=== PATIENT | female | born 1955 | race Caucasian/White ===

== ENCOUNTER 2019-03-08 04:10 | Inpatient (IN) | payer OTHER ==
[~2019-03-08] VITALS: Ht 157.5 cm; Wt 91.8 kg
[~2019-03-08 04:10] MED LIST: ASPIRIN325 PO; AVELOX 400 MG400 M1 PO; CARVEDILOL3.125 MG PO; COMBIVENT INH; EFFIENT10 MG PO; GLIPIZIDE ER2.5 MG PO; K-DUR 20 MEQ T20 MEQ PO; LASIX 40 MG TAB40 M1 PO; LIPITOR40 MG PO; MULTI FOR HER1 EACH PO; OMEGA-3 + VITA1 EAC1 PO; SYNTHROID100 MC1 PO; ZESTRIL10 MG PO
[2019-03-08 04:17] VITALS: BP 213/127
[2019-03-08 04:34] LABS: HEMATOCRIT 44.4 % (37.0-47.0); HEMOGLOBIN 15.7 gm/dL (12.0-15.0); MCH 36.4 pg (26.0-34.0); MCHC 35.3 g/dL (28.0-37.0); MCV 103.1 fL (80.0-100.0); PLATELET COUNT 185 thou/uL (150-400); RBC 4.31 mil/uL (4.20-5.00); RDW 14.6 % (10.5-14.5); WBC 9.8 thou/uL (4.0-11.0)
[2019-03-08 04:47] LABS: ANION GAP 9 mmol/L (7-16); APTT 29.3 Seconds (24.5-32.8); BUN 19 mg/dL (7-18); CALCIUM 9.5 mg/dL (8.5-10.1); CHLORIDE 88 mmol/L (98-107); CO2 31 mmol/L (21-32); CREATININE 1.1 mg/dL (0.6-1.0); GLUCOSE 133 mg/dL (74-106); POTASSIUM 3.3 mmol/L (3.5-5.1); PROTIME 9.5 Seconds (9.3-11.4); SODIUM 128 mmol/L (136-145)
[2019-03-08] MEDS ORDERED: NORVASC5 MG PO (04:50)
[2019-03-08] MEDS ORDERED: CHLORTHALIDONE25 MG PO (04:52)
[2019-03-08 04:57] LABS: ALBUMIN 3.1 g/dL (3.4-5.0); MAGNESIUM 1.8 mg/dL (1.8-2.4); SGOT 34 U/L (15-37); SGPT 29 U/L (30-65); TOTAL BILIRUBIN 0.7 mg/dL (<0.1-1.0); TOTAL PROTEIN 8.5 g/dL (6.4-8.2); TROPONIN-I <0.06 ng/mL (<0.06)
[2019-03-08 05:42] VITALS: BP 177/104
[2019-03-08 05:47] LABS: ABSOLUTE NEUTROPHILS 9.3 thou/uL (1.4-8.2)
[2019-03-08 05:48] LABS: ANISOCYTOSIS 1+; MACROCYTES 1+; PLATELET ESTIMATE NORMAL; POLYCHROMASIA 1+
[2019-03-08 05:53] VITALS: BP 153/93
[2019-03-08 06:45] VITALS: BP 97/55
--- NOTE | 2019-03-08 06:45 | NUR ---
TRANSFERED PT TO 464, BP ON ARRIVAL TO 4WEST 88/55, NITROPASTE REMOVED AND UPDATE GIVEN TO YAJAIRA RODRIGUEZ.
--- NOTE | 2019-03-08 08:08 | EKG ---
[place] [address] [facility] [place] [address] ELECTROCARDIOGRAM REPORT Name: AUDIE MENJIVAR Room #: 464-P ADM IN M.R.#: [id number] ������������������ Admission: 03/08/19 ������������������ Attend Phys: Quentin Lopez MD Discharge: ������������������ Date of : 51 Report #: [id number] ����������������������������������������������������������������� [id number] THIS REPORT FOR: //name// [facility] ED Test Date: 2019-03-08 Test Time: 04:24:48 Pat Name: AUDIE MENJIVAR Department: Room: 464 Gender: F Postie: MAC : 1955 Requested By: James Nguyen Order Number: [id number] MD: Jovan Grace Measurements Intervals [place] Rate: 105 P: 95 WY: 182 QRS: -60 QRSD: 110 T: 98 QT: 360 QTc: 476 Interpretive Statements Sinus tachycardia Left anterior fascicular block Poor R wave progression Compared to ECG 06/14/2012 07:32:24 no significant change was found Electronically Signed On 03-08-2019 8:08:13 CDT by Jovan Grace [email or web address] ��������������������������������������������� <ELECTRONICALLY SIGNED> ���������������������������������������� By: Jovan Grace MD, [facility] ��������������������������������������������� 03/08/19 0808 0424 0424 Jovan Grace MD, [facility] /EPI
--- NOTE | 2019-03-08 10:28 | NUR ---
ADM PT CAME IN FROM ER AT SHIFT CHANGE. PT ORIENTED TO ROOM. ADM ORDERS DONE. WILL CONTINUE TO MONITOR.
[2019-03-08 13:55] VITALS: BP 107/70
--- NOTE | 2019-03-08 14:44 | NUR ---
PT ADMITTED RELATED TO COPD, CHF. CM REVIEWED CHART AND SPOKE WITH CARE TEAM. CM MET WITH PT AT BEDSIDE THIS DAY. PT IS A&O X4. CM ROLE INTRODUCED. PT INDICATED SHE LIVES IN A HOUSE WITH HER SPOUSE WITH 3 STEPS TO ENTER AND 0 STEPS INSIDE. 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 PT INDICATED SHE PLANS TO RETURN HOME ONCE MEDICALLY STABLE. CM TO FOLLOW INDICATED WITH DC PLANNING.
[2019-03-08 19:47] VITALS: BP 126/78
[2019-03-09 04:50] VITALS: BP 103/52
[2019-03-09 05:09] LABS: ABSOLUTE NEUTROPHILS 10.7 thou/uL (1.4-8.2); BASOPHILS 0.1 % (0.0-2.0); HEMOGLOBIN 13.8 gm/dL (12.0-15.0); LYMPHOCYTES 1.9 % (24.0-44.0); MCH 35.7 pg (26.0-34.0); MCHC 34.4 g/dL (28.0-37.0); MCV 103.7 fL (80.0-100.0); MONOCYTES 1.7 % (1.0-8.0); PLATELET COUNT 178 thou/uL (150-400); POLYS 96.3 % (36.0-66.0); RBC 3.85 mil/uL (4.20-5.00); RDW 14.5 % (10.5-14.5); WBC 11.1 thou/uL (4.0-11.0)
[2019-03-09 05:30] LABS: ANION GAP 8 mmol/L (7-16); BUN 29 mg/dL (7-18); CALCIUM 8.7 mg/dL (8.5-10.1); CHLORIDE 92 mmol/L (98-107); CO2 30 mmol/L (21-32); CREATININE 1.3 mg/dL (0.6-1.0); GLUCOSE 129 mg/dL (74-106); MAGNESIUM 1.9 mg/dL (1.8-2.4); POTASSIUM 4.4 mmol/L (3.5-5.1); SODIUM 130 mmol/L (136-145); TROPONIN-I <0.06 ng/mL (<0.06)
[2019-03-09 05:54] LABS: CHOLESTEROL 261 mg/dL (<200); HDL CHOLESTEROL 54 mg/dL (>40); LDL CHOLESTEROL 187 mg/dL (<100); TC:HDL 4.8 Ratio (Not establshd); TRIGLYCERIDE 103 mg/dL (<150); VLDL 21 mg/dL (<40)
[2019-03-09 05:56] LABS: SERUM ASSESSMENT Clear
--- NOTE | 2019-03-09 10:49 | 2DMMODE ---
[facility] [address] [place] [address] 2 D/M-MODE ECHOCARDIOGRAM Name: AUDIE MENJIVAR Room #: 464-P ADM IN M.R.#: [id number] ������������� Admission: 03/08/19 ������������� Attend Phys: Quentin Lopez MD Discharge: ��� ������������� ��� Date of : 51 Date of Service: 03/09/19 1048 �� Report #: [id number] �������� ��������������������������������������������[id number] THIS REPORT FOR: //name// APPROVED REPORT Study performed: 03/09/2019 09:35:44 EXAM: Comprehensive 2D, Doppler, and color-flow Echocardiogram Patient Location: Bedside, PRE-OP Room #: 464 Status: routine BSA: 1.93 HR: 70 bpm BP: 103/63 mmHg Rhythm: NSR Other Information Study Quality: Technically Difficult Technically limited study due to body habitus, inability to position patient. Indications Congestive Heart Failure COPD CAD Hypertension/HDD elevated BNP 2D Dimensions RVDd: 23.04 mm IVSd: 16.88 (7-11mm) LVOT Diam: 22.69 (18-24mm) LVDd: 35.99 mm PWd: 17.03 (7-11mm) Ascending Ao: 24.88 (22-36mm) LVDs: 31.27 (25-40mm) Aortic Root: 28.65 mm IVC: 20.00 mm Volumes Left Atrial Volume (Systole) Single Plane 4CH: 44.24 mL Single Plane 2CH: 53.57 mL LA ESV Index: 27.00 mL/m2 Aortic Valve AoV Peak Thad.: 1.46 m/s AO Peak Gr.: 8.53 mmHg LVOT Max P.31 mmHg LVOT Max V: 1.04 m/s [facility] [address] [place] [address] 2 D/M-MODE ECHOCARDIOGRAM Name: AUDIE MENJIVAR Room #: 464-[facility].#: [id number] ������������� Admission: 03/08/19 ������������� Attend Phys: Quentin Lopez MD Discharge: ��� ������������� ��� Date of : 51 Date of Service: 03/09/19 1048 �� Report #: [id number] �������� ��������������������������������������������[id number] CHRISTOPHER Vmax: 2.87 cm2 Mitral Valve E/A Ratio: 1.1 MV Decel. Time: 171.74 ms MV E Max Thad.: 1.00 m/s MV A Thad.: 0.91 m/s MV PHT: 49.81 ms IVRT: 152.25 ms Pulmonary Valve PV Peak Thad.: 0.70 m/s PV Peak Gr.: 1.96 mmHg Tricuspid Valve RAP Estimate: 5.00 mmHg Left Ventricle The left ventricle is normal size. There is normal LV segmental wall motion. Mild concentric left ventricular hypertrophy. The left ventricular systolic function is normal. The left ventricular ejection fraction is within the normal range. LVEF is 50-55%. Moderate diastolic dysfunction is present (pseudonormal filling). Right Ventricle The right ventricle is normal size. The right ventricular systolic function is normal. Atria The left atrium size is normal. The right atrium size is normal. Aortic Valve Aortic valve is mildly calcified. No aortic regurgitation is present. There is no aortic valvular stenosis. Mitral Valve Mild mitral annular calcification. There is no mitral valve regurgitation noted. No evidence of mitral valve stenosis. Tricuspid Valve The tricuspid valve is normal in structure. Trace tricuspid regurgitation. Unable to assess PA pressure. Pulmonic Valve The pulmonary valve is normal in structure. Trace pulmonic [facility] [address] [place] [address] 2 D/M-MODE ECHOCARDIOGRAM Name: AUDIE MENJIVAR Room #: 464-P ADM IN M.R.#: [id number] ������������� Admission: 03/08/19 ������������� Attend Phys: Quentin Lopez MD Discharge: ��� ������������� ��� Date of : 51 Date of Service: 03/09/19 1048 �� Report #: [id number] �������� ��������������������������������������������[id number] regurgitation. Great Vessels The aortic root is normal in size. IVC is upper limits of normal in size and collapses >50% with inspiration. Pericardium Moderate to large pericardial effusion. No echo indexes of tamponade physiology. Large left pleural effusion. <Conclusion> The left ventricular systolic function is normal. Mild concentric left ventricular hypertrophy. There is normal LV segmental wall motion. LVEF is 50-55%. Moderate diastolic dysfunction Aortic valve is mildly calcified. No aortic regurgitation or stenosis. Mild mitral annular calcification. No mitral valve regurgitation. Moderate to large pericardial effusion. No echo indexes of tamponade physiology. Pericardial appears smaller than what was seen in 2011 ��������������������������������������������� <ELECTRONICALLY SIGNED> ���������������������������������������� By: Jovan Grace MD, [facility] ��������������������������������������������� 03/09/19 1048 1048 1048 Jovan Grace MD, [facility] /INF
[2019-03-09 11:06] LABS: BE(vivo) 1.5 mmol/L (-2 to +3); sO2 90.7 % (92.0-98.0)
[2019-03-09 11:07] LABS: PCO2 65.5 mmHg (35.0-45.0); pH 7.279 (7.360-7.450)
--- NOTE | 2019-03-09 14:49 | NUR ---
TOWARDS POC PT A/O X4, VSS, AFEBRILE, DENIES PAIN. PT WENT DOWN FOR BRONCH, BUT NO PROCEDURES HAS BEEN DONE. PLANNING TO DO CARDIAC WORK UP PRIOR BRONCH. FAMILY AWARE ABOUT THE SITUATION. CRITICAL RESULTS RELAY TO CYBER OPS PLANNER. WILL CONTINUE TO MONITOR.
[2019-03-09 16:27] VITALS: BP 114/78
[2019-03-09 20:41] VITALS: BP 103/56
[2019-03-09 23:05] LABS: GLYCOHEMOGLOBIN (HGB A1C) 5.9 % (4.8-5.6)
[2019-03-10] VITALS (33 sets, daily range): BP systolic 64–130; BP diastolic 41–79
[2019-03-10 00:07] LABS: HIV ANTIBODY Non Reactive (Non Reactive)
--- NOTE | 2019-03-10 06:23 | NUR ---
PROGRESS PT ADMITTED WITH COPD.CHF. LEFT PLEURAL EFFUSIONS. TO HAVE BRONCHOSCOPY THESE AM ORDERS JUST OBTAINED. PT A/O X4 DENIES PAIN. RE ADJUSTING SLEF IN BED, UP WITH SBA WITH SLIGHTCONTACT GUARD DO ASSIST. CONTINUE TO MONITOR.
[2019-03-10 08:44] LABS: CALCIUM 8.9 mg/dL (8.5-10.1); CREATININE 1.2 mg/dL (0.6-1.0); POTASSIUM 4.9 mmol/L (3.5-5.1)
--- NOTE | 2019-03-10 11:05 | HC ---
[facility] [place] [address] [place] [address] CONSULTATION Name: AUDIE MENJIVAR Room #: 464-P ADM IN M.R.#: [id number] Admission: 03/08/19 ������������������ Attend Phys: Quentin Lopez MD Discharge: ������������������ Date of : 51 Report #: [id number] THIS REPORT FOR: //name// CC: Reji Lopez DATE OF SERVICE: 03/09/2019 REASON FOR CONSULTATION: I was asked to evaluate concerning pneumonia. HISTORY OF PRESENT ILLNESS: The patient is a 63-year-old underlying history of diabetes, coronary artery disease, COPD with cardiomyopathy and history of previous congestive heart failure. She has been off her medications for several months. She does smoke cigarettes up to 2 packs per day. She does drink a moderate amount of alcohol. She presents with a several-month history of progressive shortness of breath. Over the last week, she has noticed increased cough with green sputum production, intermittent sweats and chills, but no documented fever. She has had intermittent chest pain to the left side. No hemoptysis. Has moderate PND and orthopnea. Has had some peripheral edema as well. No travel outside the [place]. No other known exposures. No tuberculosis history. No HIV risk factors. ALLERGIES: None known. MEDICATIONS: As noted on JAN, currently on Levaquin. PAST MEDICAL HISTORY: Diabetes, coronary artery disease, cardiomyopathy, hypertension, COPD, chronic kidney disease, vascular disease, hypothyroidism. FAMILY HISTORY: Noncontributory. SOCIAL HISTORY: Smoker of cigarettes, moderate alcohol use, lives with her spouse. REVIEW OF SYSTEMS: Denies any nausea, vomiting, diarrhea, dysuria or frequency. No skin rashes or decubiti. Denies any headache or neurologic issues. No lymphadenopathy, anxiety or depression. A 10-point review was negative other than what is described above. PHYSICAL EXAMINATION: VITAL SIGNS: She is afebrile and hemodynamically stable. GENERAL: She was alert and cooperative. She is lying in bed, awaiting her bronchoscopy. SKIN: Mild venous stasis changes to the right pretibial skin with no other rashes or decubiti noted. No palpable adenopathy. HEENT: Eyes without scleral icterus. Mouth without mucositis. Dentition in [facility] [address] [place] [address] CONSULTATION Name: AUDIE MENJIVAR Room #: 464- ADM IN M.R.#: [id number] Admission: 03/08/19 ������������������ Attend Phys: Quentin Lopez MD Discharge: ������������������ Date of : 51 Report #: [id number] reasonable repair. NECK: Supple. No thyromegaly or mass. LUNGS: Decreased breath sounds, left base posteriorly. There was consolidation in the left mid posterior chest. She had scattered wheezes throughout. HEART: Distant sounds, with no rub, gallop or murmur. ABDOMEN: Obese, soft, nontender with no hepatosplenomegaly or mass. EXTREMITIES: With no clubbing or cyanosis. She had mild edema, right lower leg. NEUROLOGIC: Cranial nerves intact. Strength in upper and lower extremities was normal. PSYCHIATRIC: Mood normal. LABORATORY STUDIES: Reviewed. X-ray and CT scans were reviewed. Microbiology reports reviewed. IMPRESSION: 1. A 63-year-old with cardiomyopathy and chronic obstructive pulmonary disease, presents with bilateral consolidative infiltrates, most predominant in the left lung, associated with a large left pleural effusion and large pericardial effusion. She does have some mediastinal adenopathy. Cause is yet indeterminate whether we are dealing with bronchial obstructive disease, malignancy, aspiration, autoimmune disorder. 2. Diabetes. 3. Chronic obstructive pulmonary disease. 4. Hypothyroidism. 5. Obesity. 6. Tobacco use. RECOMMENDATION: Agree with cardiac evaluation. Will likely need drainage procedure, I believe, of the pericardium or pleural space on the left. Await bronchoscopy for further information regarding endobronchial lesions or evidence of mucus plugging. Also, evaluate for possible aspiration. We will check cultures from bronchoscopy as well as antigens, serologies. Screen for malignancy. Await further Cardiology evaluation. ��������������������������������������������� <ELECTRONICALLY SIGNED> ���������������������������������������� By: James Martínez MD ��������������������������������������������� 03/10/19 1105 0940 0112 James Martínez MD /nt
--- NOTE | 2019-03-10 11:19 | NUR ---
ALERTED EARLIER THAT PT IS BEING TRANSFERRED TO ICU, CALLED AND SPOKE W/CHARGE TO GIVE REPORT TO NURSE ASSIGNED, SHE STATES NURSE WILL RETURN CALL WHEN SHE'S READY
[2019-03-10 17:58] LABS: BE(vivo) 2.9 mmol/L (-2 to +3); HCO3 29.2 mmol/L (22.0-26.0); PCO2 52.1 mmHg (35.0-45.0); PO2 71.7 mmHg (80.0-100.0); pH 7.366 (7.360-7.450); sO2 93.7 % (92.0-98.0)
--- NOTE | 2019-03-10 20:37 | NUR ---
VASCULAR ACCESS CONSULTED FOR PICC PLACEMENT. PT'S LABS,MEDS,HISTORY,ORDER AND CONSENT VERIFIED. PT WAS PREPPED AND DRAPED FOR MAX BARRIER PRECAUTIONS. ATTEMPTED AMANDA BASILIC UNSUCCESSFUL THEN AMANDA CEPHALIC WIDELY PATENT WITH USG, 1% LIDOCAINE GIVEN SQ. 5FR POWER TL PICC TRIMMED TO 40CM ,HAD DIFFICULT TIME DROPPING AFTER NUMEROUS ATTEMPTS,THEN DROPPED AFTER PT COUGHED.INSERTED TO 2CM EXTERNAL.PICC SECURED AND STAT CXR OBTAINED.
--- NOTE | 2019-03-10 20:44 | NUR ---
CXR CONFIRMED PLACEMENT IN SVC, PICC RELEASED FOR IMMEDIATE USE PER PROTOCOL TO JAMAR RODRIGUEZ.
[2019-03-11] VITALS (93 sets, daily range): BP systolic 84–156; BP diastolic 47–89
[2019-03-11 04:50] LABS: MCH 36.7 pg (26.0-34.0); MCHC 35.2 g/dL (28.0-37.0); MCV 104.4 fL (80.0-100.0); RBC 3.16 mil/uL (4.20-5.00); WBC 6.3 thou/uL (4.0-11.0)
[2019-03-11 05:01] LABS: CREATININE 0.8 mg/dL (0.6-1.0); POTASSIUM 4.7 mmol/L (3.5-5.1)
[2019-03-11 05:02] LABS: HEMOGLOBIN 11.6 gm/dL (12.0-15.0)
[2019-03-11 05:11] LABS: BE(vivo) 1.3 mmol/L (-2 to +3); HCO3 27.5 mmol/L (22.0-26.0); PCO2 50.2 mmHg (35.0-45.0); PO2 77.8 mmHg (80.0-100.0); pH 7.357 (7.360-7.450); sO2 94.9 % (92.0-98.0)
--- NOTE | 2019-03-11 06:00 | NUR ---
REMAINS INTUBATED AND SEDATED WITH PROPOFOL GTT. AROUSES EASILY AND FOLLOWS COMMANDS. SINUS HEATHER TO SR. BATHED REPOSITIONED Q 2 HRS. WILL CONT TO MONITOR. WILL ATTEMPT TO WEAN TODAT.
--- NOTE | 2019-03-11 06:00 | NUR ---
PT REMAINS INTUBATED..OPENS EYES TO NAME AND FOLLOW SIMPLE COMMANDS. 650 CC UO THIS SHIFT. DENIES PAIN. REPOSITIONED A 2KRD. WILL CONT TO MONILK.
[2019-03-11 18:05] LABS: HISTOPLASMA MYCELIAL-ID Negative (Negative)
[2019-03-12] VITALS (42 sets, daily range): BP systolic 90–159; BP diastolic 53–93
[2019-03-12 05:32] LABS: BE(vivo) 3.2 mmol/L (-2 to +3); HCO3 28.7 mmol/L (22.0-26.0); PCO2 47.8 mmHg (35.0-45.0); pH 7.397 (7.360-7.450); sO2 97.5 % (92.0-98.0)
--- NOTE | 2019-03-12 06:00 | NUR ---
REMAINS INTUBATED AND LIGHTLY SEDATED WITH PROPOFOL GTT AT 20 MCG 550 CFC UO THIS SHIFT. AROUSES EASILY. FOLLOWS COMMANDS. REMAINS IN SINUS HEATHER TO SINUS RHYTHM. WILL CONT TO MONITOR CLOSELY.
[2019-03-12 06:02] LABS: HEMATOCRIT 34.1 % (37.0-47.0); HEMOGLOBIN 11.7 gm/dL (12.0-15.0); MCHC 34.4 g/dL (28.0-37.0); MCV 104.4 fL (80.0-100.0); RBC 3.26 mil/uL (4.20-5.00); RDW 14.6 % (10.5-14.5); WBC 4.4 thou/uL (4.0-11.0)
[2019-03-12 06:07] LABS: CALCIUM 7.3 mg/dL (8.5-10.1); CREATININE 0.7 mg/dL (0.6-1.0); MAGNESIUM 1.9 mg/dL (1.8-2.4); POTASSIUM 4.8 mmol/L (3.5-5.1)
--- NOTE | 2019-03-12 19:22 | NUR ---
PATIENT ASSESSMENTS AND VITAL SIGNS DOCUMENTED. PLAN OF CARE IS FOR A CAT SCAN TOMORROW, THEN EVALUATION OF NEED FOR VENTILATOR. FAMILY UPDATED THROUGHOUT THE DAY. SPOUSE WAS AT BEDSIDE MOST OF THE DAY. SHE IS ABLE TO COMMUNICATE NEEDS AND WANTS. SHE WAS TURNED DOCUMENTED. SHE REQUESTED THIS EVENING TO HAVE SCDS OFF. THIS WAS DONE, EDUCATION PROVIDED. ORAL CARE PROVIDED. REPORT GIVEN TO THE SPRING CRATER RN FOR CONTINUATION OF CARE.
--- NOTE | 2019-03-12 19:23 | NUR ---
I have reviewed the documentation by VALENTIN WALDROP from 03/12/2019 0700 to 03/12/2019 192 and I concur with it.
[2019-03-13] VITALS (24 sets, daily range): BP systolic 106–164; BP diastolic 63–91
[2019-03-13 05:18] LABS: HEMATOCRIT 35.8 % (37.0-47.0); HEMOGLOBIN 12.3 gm/dL (12.0-15.0); MCH 35.7 pg (26.0-34.0); MCHC 34.4 g/dL (28.0-37.0); RBC 3.44 mil/uL (4.20-5.00); RDW 14.5 % (10.5-14.5); WBC 4.6 thou/uL (4.0-11.0)
[2019-03-13 05:30] LABS: CALCIUM 7.3 mg/dL (8.5-10.1); CREATININE 0.8 mg/dL (0.6-1.0); POTASSIUM 4.2 mmol/L (3.5-5.1)
--- NOTE | 2019-03-13 06:00 | NUR ---
PT HAS RESTED QUIETLY TONIGHT. INTUBATED AND SEDATED LIGHTLY WITH PROPOFOL GTT AT 20 MCG. AROUSES EASILY AND FOLLOWS COMMANDS. LUNGS COARSE IN UPPER LOBES SUCTIONED FOR A MOD AMT WHITISWH SPUTUM. DIURECED WELL FROM LASIX 1700 CC UO THIS SHIFT. BATHED. S/C FOR CT OF CHEST THIS AM. BATHED WILL CONT TO MONITOR CLOSELY.
[2019-03-13 12:05] LABS: ANA INTERPRETATION Negative (Negative)
--- NOTE | 2019-03-13 18:05 | PATH ---
[facility] [place] [address] PATHOLOGY RPT PROCEDURE Name: ARELIS FERNANDEZ Room #: 241-P ADM IN M.R.#: [id number] ������������������ Admission: 03/08/19 ������������������ Date of : 51 Discharge: Report #: [id number] Path Case #: [id number] L[facility] Accession Number: [id number] . 01 Material submitted: . lung - LEFT LOWER LOBE LUNG BIOPSY. Modifiers: left, lower lobe . 01 Clinical history: . Please refer to requisition for information . 02 Diagnosis: Lung, left lower lobe, bronchial biopsy: - Negative for malignancy. - Mild chronic inflammation. (IUV:pit 03/13/2019) . Dr. Reyna Rincon has co-reviewed this case and concurs with my diagnosis. (IUV:pit 03/13/2019) QTP/03/13/2019 . 02 Electronically signed: . Abril U Vadlamani, MD, Pathologist NPI- [id number] . 01 Gross description: . Received in formalin labeled "Arelis Fernandez LLL biopsy," are multiple segments of puente soft tissue measuring 0.4 x 0.2 x 0.1 cm in aggregate dimensions. The specimen is filtered and entirely submitted in cassette A1. (TSD; 03/10/2019) TOB/TOB . 02 Pathologist provided ICD-10: J98.4 . 02 CPT . [id number] Specimen Comment: A courtesy copy of this report has been sent to Specimen Comment: [phone], , . Specimen Comment: Report sent to ,DR RIVAS / DR BLISS Performed at: [address] [id number] MD Porfirio Metzger MD Phone: [phone] Performed at: 02 [facility] [address] [place] [address] PATHOLOGY RPT PROCEDURE Name: ARELIS FERNANDEZ Room #: 241-P ADM IN M.R.#: [id number] ������������������ Admission: 03/08/19 ������������������ Date of : 51 Discharge: Report #: [id number] Path Case #: [id number] [address] [place], [place] [id number] MD Abril Andre MD Phone: [phone]
[2019-03-13 18:08] LABS: GLOBULIN TOTAL 3.9 g/dL (2.2-3.9); M-SPIKE Not Observed g/dL (Not Observed)
[2019-03-13 21:05] LABS: ADENOVIRUS Negative (Negative); INFLUENZA A Negative (Negative); INFLUENZA B Negative (Negative); METAPNEUMOVIRUS Negative (Negative); PARAINFLUENZA 1 Negative (Negative); PARAINFLUENZA 2 Negative (Negative); PARAINFLUENZA 3 Negative (Negative); RHINOVIRUS Negative (Negative); RSV A Negative (Negative); RSV B Negative (Negative)
[2019-03-14] VITALS (21 sets, daily range): BP systolic 104–177; BP diastolic 61–99
[2019-03-14 04:06] LABS: CALCIUM 7.7 mg/dL (8.5-10.1); CREATININE 0.8 mg/dL (0.6-1.0); POTASSIUM 3.7 mmol/L (3.5-5.1)
[2019-03-14 04:24] LABS: HEMATOCRIT 39.3 % (37.0-47.0); HEMOGLOBIN 13.4 gm/dL (12.0-15.0); MCH 35.6 pg (26.0-34.0); MCHC 34.2 g/dL (28.0-37.0); RBC 3.77 mil/uL (4.20-5.00); RDW 14.2 % (10.5-14.5); WBC 5.4 thou/uL (4.0-11.0)
--- NOTE | 2019-03-14 06:11 | NUR ---
SLEPT MOST OF SHIFT. AROUSES EASILY AND ANSWERS YES NO QUESTIONS WITH NODDING HEAD. POINTS AT THINGS AND WRITES NOTES WHEN NEEDED FOR COMUNICAITON. REPOSITIONED EVERY TWO HOURS FOR COMFORT AND SKIN CARE. MAINTAIN PROPOPHOL FOR MILD SEDATION. BATH GIVEN FOR COMFORT. COMPLAINTS OF THROAT PAIN WITH MOROPHINE GIVEN WITH RELIEF. SUCTIONED ORALLY AND PER TUBE FOR COMFORT. WORKING ON GOALS AND PLAN OF CARE FOR NOC. PROGRESSING SLWOLY TOWARDS GOALS. CONTINUE TO ASSES AND MONITOR CLOSLY.
[2019-03-14 14:32] LABS: CLARITY CLOUDY; COLOR YELLOW; SOURCE LFT THORA; TOTAL VOLUME 57 mL
[2019-03-14 14:40] LABS: BF NUCLEATED CELLS 285; BF RBC 1486
--- NOTE | 2019-03-14 15:05 | PATH ---
[facility] [address] [place] [address] PATHOLOGY RPT PROCEDURE Name: AUDIE MENJIVAR Room #: 241-P ADM IN M.R.#: [id number] ������������������ Admission: 03/08/19 ������������������ Date of : 51 Discharge: Report #: [id number] Path Case #: [id number] Note LCA Accession Number: [id number] TESTS RESULT FLAG UNITS REF RANGE LAB Clinician Provided Cytology Information No. of containers..01 Other (Miscellaneous) Source: BRONCH BRUSH TIP DIAGNOSIS: 02 LEFT LOWER LOBE, BRONCH BRUSH TIP NEGATIVE FOR MALIGNANT CELLS. REACTIVE BRONCHIAL CELLS ARE PRESENT. PULMONARY MACROPHAGES (DUST CELLS) ARE PRESENT. CHRONIC INFLAMMATION. Pathologist ICD10: 02 J44.9 Signed out by: Abril Andre MD, Pathologist NPI- [id number] Performed by: Farhana Denton, Production Reproduction Manager ([facility]) Gross description: 01 20ML, COLORLESS, CLEAR /LCS FLAG LEGEND: L-Low Normal,H-High Normal,LL-Alert Low,HH-Alert High <-Panic Low,>-Panic High,A-Abnormal,AA-Critical Abnormal Performed at: [address] [place] [address] Porfirio Metzger MD, [address] [address] Abril Andre MD, Specimen Comment: A courtesy copy of this report has been sent to Specimen Comment: [phone], , . Specimen Comment: A duplicate report has been generated due to demographic updates. Performed at: [address], [place], [place] [id number] MD Porfirio Metzger MD Phone: [phone]
--- NOTE | 2019-03-14 15:05 | PATH ---
[facility] [address] [place] [address] PATHOLOGY RPT PROCEDURE Name: AUDIE MENJIVAR Room #: 241-P ADM IN M.R.#: [id number] ������������������ Admission: 03/08/19 ������������������ Date of : 51 Discharge: Report #: [id number] Path Case #: [id number] Note LCA Accession Number: [id number] TESTS RESULT FLAG UNITS REF RANGE LAB Clinician Provided Cytology Information No. of containers..01 Other (Miscellaneous) Source: LLL ASPIRATE DIAGNOSIS: LLL ASPIRATE NEGATIVE FOR MALIGNANT CELLS. REACTIVE BRONCHIAL CELLS ARE PRESENT. PULMONARY MACROPHAGES (DUST CELLS) ARE PRESENT. THIS INTERPRETATION INCLUDES EVALUATION OF A CELL BLOCK. CHRONIC INFLAMMATION PRESENT IN THE BACKGROUND. Pathologist ICD10: 02 J44.9 Signed out by: 02 Abril Andre MD, Pathologist NPI- [id number] Performed by: Farhana Denton, Continuous Dryout Operator ([facility]) Gross description: 01 10ML, VANDANA WEST /LCS FLAG LEGEND: L-Low Normal,H-High Normal,LL-Alert Low,HH-Alert High <-Panic Low,>-Panic High,A-Abnormal,AA-Critical Abnormal Performed at: [address] [place] [address] Porfirio Metzger MD, [address] [address] Abril Andre MD, Specimen Comment: A courtesy copy of this report has been sent to Specimen Comment: [phone], , . Specimen Comment: Report sent to DR BOYLE,DR RIVAS / DR BLISS Specimen Comment: A duplicate report has been generated due to demographic updates. Performed at: [address], [place], [place] [id number] [address] [address] PATHOLOGY RPT PROCEDURE Name: AUDIE MENJIVAR Room #: 241-P [facility] IN M.R.#: [id number] ������������������ Admission: 03/08/19 ������������������ Date of : 51 Discharge: Report #: [id number] Path Case #: [id number] MD Porfirio Metzger ND Phone: [phone]
--- NOTE | 2019-03-14 15:05 | PATH ---
[facility] [address] [place] [address] PATHOLOGY RPT PROCEDURE Name: AUDIE MENJIVAR Room #: 241-P ADM IN M.R.#: [id number] ������������������ Admission: 03/08/19 ������������������ Date of : 51 Discharge: Report #: [id number] Path Case #: [id number] Note LCA Accession Number: [id number] TESTS RESULT FLAG UNITS REF RANGE LAB Clinician Provided Cytology Information No. of containers..01 Other (Miscellaneous) Source: BRONCHIAL WASHING DIAGNOSIS: 02 BRONCHIAL WASHING NEGATIVE FOR MALIGNANT CELLS. NORMAL BRONCHIAL CELLS AND MACROPHAGES ARE PRESENT. PULMONARY MACROPHAGES (DUST CELLS) ARE PRESENT. Pathologist ICD10: 02 J44.9 Signed out by: Abril Andre MD, Pathologist NPI- [id number] Performed by: Farhana Denton, Route Delivery Driver ([facility]) Gross description: 01 30ML, RED, CLOUDY /LCS FLAG LEGEND: L-Low Normal,H-High Normal,LL-Alert Low,HH-Alert High <-Panic Low,>-Panic High,A-Abnormal,AA-Critical Abnormal Performed at: [address] [place] [address] Porfirio Metzger MD, [address] [address] Abril Andre MD, Specimen Comment: A courtesy copy of this report has been sent to Specimen Comment: [phone], . Specimen Comment: Report sent to DR BLISS / DR RIVAS Specimen Comment: A duplicate report has been generated due to demographic updates. Performed at: [address], [place], [place] [id number] MD Porfirio Metzger MD Phone: [phone]
--- NOTE | 2019-03-14 15:05 | PATH ---
[facility] [address] [place] [address] PATHOLOGY RPT PROCEDURE Name: AUDIE MENJIVAR Room #: 241-P ADM IN M.R.#: [id number] ������������������ Admission: 03/08/19 ������������������ Date of : 51 Discharge: Report #: [id number] Path Case #: [id number] Note LCA Accession Number: [id number] TESTS RESULT FLAG UNITS REF RANGE LAB Clinician Provided Cytology Information No. of containers..01 Slide Source: LLL BRUSHING DIAGNOSIS: 02 LLL BRUSHING NEGATIVE FOR MALIGNANT CELLS. REACTIVE BRONCHIAL CELLS ARE PRESENT. PULMONARY MACROPHAGES (DUST CELLS) ARE PRESENT. RARE MARKEDLY ENLARGED ATYPICAL NAKED NUCLEI, SEE COMMENT. Comment: Scant to rare markedly enlarged atypical naked nulei with no associated cytoplasm are identified. Abundant reactive bronchial epithelial cells are present in the background with no evident atypical features. The scant nature and lack of associated cytologic details precludes an interpretation for these cells. Clinical correlation is suggested. Pathologist ICD10: 02 J44.9 Signed out by: 02 Abril Andre MD, Pathologist NPI- [id number] Performed by: 01 Farhana Denton, Food Services Coordinator ([facility]) FLAG LEGEND: L-Low Normal,H-High Normal,LL-Alert Low,HH-Alert High <-Panic Low,>-Panic High,A-Abnormal,AA-Critical Abnormal Performed at: 01 [facility] [address] [place] [address] [address] [place] [address] Porfirio Metzger MD, [address] [address] Abril Andre MD, Specimen Comment: A courtesy copy of this report has been sent to Specimen Comment: [phone], , . Specimen Comment: Report sent to DR BOYLE,DR BLISS / DR RIVAS Specimen Comment: A duplicate report has been generated due to demographic updates. Performed at: [address] [address] PATHOLOGY RPT PROCEDURE Name: AUDIE MENJIVAR Room #: 241-P [facility] IN M.R.#: [id number] ������������������ Admission: 03/08/19 ������������������ Date of : 51 Discharge: Report #: [id number] Path Case #: [id number] [facility] [address] [place] [address] [address], [place], [place] [id number] MD Porfirio Metzger MD Phone: [phone]
[2019-03-14 15:45] LABS: BF NEUTROPHILS 55
[2019-03-14 15:46] LABS: BF MACROPHAGE 11
[2019-03-14 16:31] LABS: BE(vivo) 8.4 mmol/L (-2 to +3); PCO2 50.1 mmHg (35.0-45.0); PO2 87.5 mmHg (80.0-100.0); sO2 96.9 % (92.0-98.0)
[2019-03-14 22:10] LABS: HISTOPLASMA MYCELIAL-CF Negative (Neg:<1:2)
--- NOTE | 2019-03-14 22:21 | NUR ---
GCS 15. A&O X4. FC, [place]. C/O NECK PAIN. TORADOL ADMINISTERED. SINUS BRADYCARDIA TO SINUS RHYTHM ON MONITOR. HYDRALAZINE ADMINISTERED FOR HYPERTENSION. O2 SAT > 92% ON 6L PER HIGH FLOW NASAL CANNULA. PT DENIES SOA. VITAL SIGNS AND ASSESSMENTS DOCUMENTED. WILL CONTINUE TO MONITOR.
[2019-03-15] VITALS (16 sets, daily range): BP systolic 101–176; BP diastolic 51–99
[2019-03-15 04:06] LABS: CALCIUM 8.3 mg/dL (8.5-10.1); CREATININE 0.7 mg/dL (0.6-1.0); POTASSIUM 3.4 mmol/L (3.5-5.1)
[2019-03-15 04:14] LABS: HEMATOCRIT 42.6 % (37.0-47.0); HEMOGLOBIN 14.6 gm/dL (12.0-15.0); MCH 35.3 pg (26.0-34.0); MCHC 34.3 g/dL (28.0-37.0); RBC 4.14 mil/uL (4.20-5.00); RDW 14.2 % (10.5-14.5); WBC 6.8 thou/uL (4.0-11.0)
[2019-03-15 08:11] LABS: BODY FLUID ALBUMIN 1.9 g/dL (()); BODY FLUID AMYLASE 25 U/L (()); BODY FLUID GLUCOSE 163 mg/dL (()); BODY FLUID LDH 298 IU/L (()); BODY FLUID PROTEIN 3.4 g/dL (())
--- NOTE | 2019-03-15 10:09 | NUR ---
Sleeping Car Porter visited with the pt, her spouse and dtr at bedside this am. Pt was extubated to nasal cannula o2 yesterday. The pt reports that she if feeling better. Therapy evals pending. She is currently on 5Liters per nc and hoping to be weaned to RA prior to dc. The pt reports family to be supportive and hoping to dc home with outpt f/u. She denies any dc concerns at this time. Cm will follow should HH or home o2 be indicated at dc. Support provided.
[2019-03-15 10:11] LABS: SOURCE THORACENTESIS
--- NOTE | 2019-03-15 12:53 | NUR ---
ALERT, ORIENTED, SCANT ICE CHIPS GIVEN FOR SORE THROAT PAIN WITH RELIEF, SR/ST, TITRATING O2- DOWN TO 3L/NC, TAKING DEEP BREATHS WITH PRODUCTIVE COUGH, SWALLOW STUDY COMPLETED, CONSUMING LUNCH, JAVIER WITH LARGE AMOUNT URINE OUTPUT RELATED TO LASIX ADMINISTRATION. PT/FAMILY UPDATED ON ALL CARES PROVIDED. SPOUSE PRESENT, PROVIDING SUPPORT. CURRENTLY SITTING IN CHAIR POSITION WHILE IN BED.
--- NOTE | 2019-03-15 13:25 | NUR ---
CALL PLACED TO DR. RIZZO X2, THEN CALL RETURNED. DR. RIZZO CONFIRMED ADMINISTRATION OF TB SKIN TEST AND RELATED TO RESULTS OF OTHER TESTS- NO ISOLATION REQUIRED.
--- NOTE | 2019-03-15 14:45 | NUR ---
TORRES ACEVEDO, ICU CHG RN OF TB SKIN TEST GIVEN AND DR. RIZZO STATING PT DOES NOT REQUIRE ISOLATION.
--- NOTE | 2019-03-15 17:20 | NUR ---
ATTEMPTED TO CALL REPORT. AWAITING NURSE ASSIGNMENT TO GIVE REPORT. PT UP IN CHAIR, CONSUMING MEAL. CONSUMING ADEQUATE LIQUIDS. DR. MOSES DC'D IV FLUIDS WHEN NOTIFIED PT TAKING ADEQUATE PO INTAKE. DENIES DISCOMFORT, SR, 3L/NC, RESP EVEN AND UNLABORED, JAVIER WITH LARGE AMOUNT OUTPUT RELATED TO LASIX. /FAMILY PRESENT AT BEDSIDE PROVIDING SUPPORT.
--- NOTE | 2019-03-15 18:04 | NUR ---
REPORT TO CCU RN. PT TRANSFERRING TO CCU RM #[id number] PER WHEELCHAIR.
[2019-03-16 00:35] VITALS: BP 164/101
--- NOTE | 2019-03-16 03:30 | NUR ---
ASSUMED CARE AT 1900, ASSESSMENT COMPLETED. PT DENIES PAIN OR NAUSEA. REPORTS SOB WITH EXERTION, COUGH WITH YELLOW SPUTUM, BUT OVERALL FEELS HER RESPIRATORY STATUS IS IMPROVING. DARK XAVIER URINE OUT OF JAVIER. PT ASSISTED TO SHOWER. Q6 ACCUCHECK, NO INSULIN REQUIRED AT MIDNIGHT. BP ELEVATED, GIVEN EVENING DOSE OF IV METOPROLOL; MIDNIGHT BP STILL ELEVATED. DISCUSSED WITH SALESPERSON PIANOS AND ORGANS, WILL MONITOR 0400 BP THEN DECIDE IF ADDITIONAL MED IS NEEDED. HAS BEEN SR ON TELE, HR 70-90. PT C/O NOT BEING ABLE TO SLEEP LAST NIGHT, GAVE DOSE OF PO LORAZEPAM TO HELP PT SLEEP. NO OTHER CONCERNS, WILL CONTINUE TO MONITOR.
[2019-03-16 04:07] LABS: CALCIUM 8.8 mg/dL (8.5-10.1); CREATININE 0.8 mg/dL (0.6-1.0); POTASSIUM 3.6 mmol/L (3.5-5.1)
[2019-03-16 04:35] VITALS: BP 175/100
[2019-03-16 07:45] VITALS: BP 128/70
[2019-03-16 11:30] VITALS: BP 151/80
[2019-03-16 15:20] VITALS: BP 143/81
--- NOTE | 2019-03-16 16:02 | NUR ---
Chart reviewed and case discussed with the care team. Pt now on 2l O2 and will continue weaning. Therapy working with the pt and recommending [facility]walker use to help provide support. Pt indicated to therapy she has one at home. CM following along for possible HH /or home o2 referrals.
--- NOTE | 2019-03-16 19:21 | NUR ---
ASSUMED CARE OF PT AT SHIFT CHANGE. ASSESSMENTS CHARTED. MEDS GIVEN PER JAN. PT ALERT AND ORIENTED, VSS, NO C/O PAIN. DENIES CHEST PAIN. O2 SATS WNL ON 1 L O2. PT WALKED UNIT WITH PHYSICAL THERAPY WELL NURSING STAFF, TOLERATED WELL. AT BEDSIDE THROUGHOUT DAY. CATHETER BAG CONTAINED RED BLOODY URINE, PROVIDER NOTIFIED, ORDERS RECEIVED TO DC CATHETER. URINE WAS YELLOW AFTER CATHETER REMOVAL. PT IS PROGRESSING TOWARDS POC. CONTINUING TO MONITOR.
[2019-03-16 19:59] VITALS: BP 119/71
[2019-03-17] VITALS (7 sets, daily range): BP systolic 121–139; BP diastolic 74–80
--- NOTE | 2019-03-17 05:09 | NUR ---
ASSUMED PT CARE AT 1900. PT A/OX4, VITAL SIGNS STABLE, ASSESSMENT CHARTED. NO COMPLAINTS OF PAIN, PT SATING WELL ON RA FOR MOST PART OF THE NIGHT. TOLERATED WALK TO BATHROOM AND BACK APPROPRIATELY. TENDS TO BE TACHYCARDIC WITH ACTIVITY. PT RESTED WELL THROUGH THE NIGHT. PROGRESSING WELL TOWARD PLAN OF CARE. WILL CONTINUE TO MONITOR.
[2019-03-17] MEDS ORDERED: LEVAQUIN 500 M500 M2 PO (10:39)
[2019-03-17] MEDS ORDERED: LASIX 40 MG TAB40 M1 PO ×2 (10:39→14:57)
[2019-03-17] MEDS ORDERED: PREDNISONE 20 M20 M1 PO (10:39)
--- NOTE | 2019-03-17 12:56 | NUR ---
Dc planning needs discussed with the pt and her spouse at bedside. Pt agreeable to hh f/u and will be homebound. Options for hh discussed. No preference. Options for home o2 reviewed and they prefer [facility] or [facility];whoever can get them setup the quickest. Meat Counter Worker spoke with [facility], [facility], [facility] and [facility] and none of them go [place] in [facility]. Referral called to [facility]. They can accept and cover this area. [facility] care to deliever a portable tank shortly and can setup out of their [place] branch. Choice letter signed by pt. Nursing updated. Dc home this afternoon with O2 and HH f/u as noted.
[2019-03-17] MEDS ORDERED: CARVEDILOL3.125 MG PO (14:57)
[2019-03-17] MEDS ORDERED: LIPITOR40 MG PO (14:57)
[2019-03-17] MEDS ORDERED: COMBIVENT INH (14:57)
[2019-03-17] MEDS ORDERED: ASPIRIN325 PO (14:57)
--- NOTE | 2019-03-17 15:14 | NUR ---
ASSUMED CARE OF PT AT SHIFT CHANGE. ASSESSMENTS CHARTED. MEDS GIVEN PER JAN. PT ALERT AND ORIENTED, VSS, NO C/O PAIN, DENIES CHEST PAIN. O2 SATS WNL ON 2L O2. PT WORKED WITH RT, PT, OT, SATS DECREASED WITH ACTIVITY. RECOVERED WITH REST AND O2. NO S/SX OF CARD OR RESP DISTRESS NOTED. DC ORDERS ACKNOWLEDGED AND IMPLEMENTED. DC PAPERWORK DISCUSSED WITH PT AND SPOUSE. COMMUNICATES UNDERSTANDING. PT LEFT UNIT AT APPROX 1500 WITH ALL BELONGINGS BY VOLUNTEER STAFF ACCOMPANIED BY . PICC LINE REMOVED, TELE REMOVED.
== END 2019-03-17 15:09 | disposition home health service (06) | DRG 207 ==
LOC: ER 04:10 → EROBS 05:15 → 4W 05:15 → ICU 03-10 11:51 → 2N 03-15 19:47 → ENTRNSPT 03-17 14:49 → EDTRNSPTSTS 03-17 14:51 → 2N 03-17 15:09
PROVIDERS: Anesthesiology; Emergency Medicine; Hospitalist; Internal Medicine Pulmonary Disease; Nurse Practitioner; Pediatrics; Specialist; ADMIT Internal Medicine
PROC: 5A1955Z Respiratory Ventilation, Greater than 96 Consecutive Hours (ICD-10-PCS; principal; 2019-03-10)
PROC: 0BBB8ZX Excision of Left Lower Lobe Bronchus, Via Natural or Artificial Opening Endoscopic, Diagnostic (ICD-10-PCS; 2019-03-10)
PROC: B548ZZA Ultrasonography of Superior Vena Cava, Guidance (ICD-10-PCS; 2019-03-10)
PROC: 0BH17EZ Insertion of Endotracheal Airway into Trachea, Via Natural or Artificial Opening (ICD-10-PCS; 2019-03-10)
PROC: 0B9B8ZX Drainage of Left Lower Lobe Bronchus, Via Natural or Artificial Opening Endoscopic, Diagnostic (ICD-10-PCS; 2019-03-10)
PROC: 02HV33Z Insertion of Infusion Device into Superior Vena Cava, Percutaneous Approach (ICD-10-PCS; 2019-03-10)
PROC: 0B9J8ZX Drainage of Left Lower Lung Lobe, Via Natural or Artificial Opening Endoscopic, Diagnostic (ICD-10-PCS; 2019-03-10)
PROC: 0BDB8ZX Extraction of Left Lower Lobe Bronchus, Via Natural or Artificial Opening Endoscopic, Diagnostic (ICD-10-PCS; 2019-03-10)
PROC: 0W9B3ZZ Drainage of Left Pleural Cavity, Percutaneous Approach (ICD-10-PCS; 2019-03-10)
DX: J96.21 Acute and chronic respiratory failure with hypoxia (principal); J18.9 Pneumonia, unspecified organism; N17.9 Acute kidney failure, unspecified; E87.1 Hypo-osmolality and hyponatremia; I13.0 Hypertensive heart and chronic kidney disease with heart failure and stage 1 through stage 4 chronic kidney disease, or unspecified chronic kidney disease; J91.8 Pleural effusion in other conditions classified elsewhere; I42.9 Cardiomyopathy, unspecified; J98.11 Atelectasis; I31.3 Pericardial effusion (noninflammatory); J44.1 Chronic obstructive pulmonary disease with (acute) exacerbation; I50.22 Chronic systolic (congestive) heart failure; J44.0 Chronic obstructive pulmonary disease with (acute) lower respiratory infection; I25.10 Atherosclerotic heart disease of native coronary artery without angina pectoris; E11.22 Type 2 diabetes mellitus with diabetic chronic kidney disease; E03.9 Hypothyroidism, unspecified; E11.65 Type 2 diabetes mellitus with hyperglycemia; E87.8 Other disorders of electrolyte and fluid balance, not elsewhere classified; E66.01 Morbid (severe) obesity due to excess calories; D53.9 Nutritional anemia, unspecified; E53.8 Deficiency of other specified B group vitamins; J96.22 Acute and chronic respiratory failure with hypercapnia; E78.5 Hyperlipidemia, unspecified; F17.210 Nicotine dependence, cigarettes, uncomplicated; Z98.42 Cataract extraction status, left eye; Z98.41 Cataract extraction status, right eye; Z71.6 Tobacco abuse counseling; Z88.8 Allergy status to other drugs, medicaments and biological substances; Z91.14 Patient's other noncompliance with medication regimen; Z68.37 Body mass index [BMI] 37.0-37.9, adult; Z82.49 Family history of ischemic heart disease and other diseases of the circulatory system; Z83.6 Family history of other diseases of the respiratory system; Z95.5 Presence of coronary angioplasty implant and graft; Z28.21 Immunization not carried out because of patient refusal; Z90.49 Acquired absence of other specified parts of digestive tract
CPT/HCPCS: 10045; 10078; 10081; 10204; 27000; 62110; 62900; 70005

== ENCOUNTER → 2019-04-04 | Outpatient (CLI) | payer OTHER ==
[~2019-04-04] MED LIST changes: +CHLORTHALIDONE25 MG PO; +LEVAQUIN 500 M500 M2 PO; +NORVASC5 MG PO; +PREDNISONE 20 M20 M1 PO
== END ==
LOC: RAD 10:30 → EDBD 10:30
DX: J90 Pleural effusion, not elsewhere classified (principal)

== ENCOUNTER → 2019-04-07 | Outpatient (CLI) | payer OTHER ==
[2019-04-07 08:38] LABS: HEMATOCRIT 34.9 % (37.0-47.0); HEMOGLOBIN 12.1 gm/dL (12.0-15.0); MCH 35.3 pg (26.0-34.0); MCHC 34.8 g/dL (28.0-37.0); MCV 101.4 fL (80.0-100.0); RBC 3.44 mil/uL (4.20-5.00); RDW 13.3 % (10.5-14.5)
[2019-04-07 08:46] LABS: CALCIUM 9.3 mg/dL (8.5-10.1); CREATININE 0.7 mg/dL (0.6-1.0); POTASSIUM 4.4 mmol/L (3.5-5.1); PROTIME 9.4 Seconds (9.3-11.4)
[2019-04-07 10:17] LABS: CLARITY CLOUDY; COLOR DARK YELLOW; SOURCE LEFT THORACENTESIS; TOTAL VOLUME 60 mL
[2019-04-07 10:29] LABS: BF NUCLEATED CELLS 4284; BF RBC 2937
[2019-04-07 10:55] LABS: SOURCE LEFT THORACENTESIS
[2019-04-07 12:40] LABS: BF MACROPHAGE 0; BF NEUTROPHILS 86
[2019-04-09 09:09] LABS: BODY FLUID ALBUMIN 2.2 g/dL (()); BODY FLUID AMYLASE 37 U/L (()); BODY FLUID GLUCOSE 120 mg/dL (()); BODY FLUID LDH 207 IU/L (())
--- NOTE | 2019-04-10 16:05 | PATH ---
[facility] [address] [place] [address] PATHOLOGY RPT PROCEDURE Name: AUDIE MENJIVAR Room #: REG Joi M.R.#: [id number] ������������������ Admission: 04/07/19 ������������������ Date of : 51 Discharge: Report #: [id number] Path Case #: [id number] Note [facility] Accession Number: [id number] TESTS RESULT FLAG UNITS REF RANGE LAB Clinician Provided Cytology Information No. of containers..01 Other (Miscellaneous) Source: PLEURAL FLUID DIAGNOSIS: 02 PLEURAL FLUID NEGATIVE FOR MALIGNANT CELLS. MESOTHELIAL CELLS ARE PRESENT. THIS INTERPRETATION INCLUDES EVALUATION OF A CELL BLOCK. MARKED ACUTE INFLAMMATION. Pathologist ICD10: 02 J91.8 Signed out by: Abril Andre MD, Pathologist NPI- [id number] Performed by: Day Lay, Client Associate ([facility]) Gross description: 01 25ML, XAVIER, CLOUDY /LCS FLAG LEGEND: L-Low Normal,H-High Normal,LL-Alert Low,HH-Alert High <-Panic Low,>-Panic High,A-Abnormal,AA-Critical Abnormal Performed at: [address] [place] [address] Porfirio Metzger MD, [address] [address] Abril Andre MD, Specimen Comment: A courtesy copy of this report has been sent to Specimen Comment: [phone], . Specimen Comment: Report sent to / DR BLISS Performed at: [address], [place], [place] [id number] MD Porfirio Metzger MD Phone: [phone]
== END | disposition home or self-care (01) ==
LOC: ULTRA 08:03
PROVIDERS: Internal Medicine Pulmonary Disease
DX: J90 Pleural effusion, not elsewhere classified (principal); R06.02 Shortness of breath; J44.9 Chronic obstructive pulmonary disease, unspecified; I13.0 Hypertensive heart and chronic kidney disease with heart failure and stage 1 through stage 4 chronic kidney disease, or unspecified chronic kidney disease; N18.9 Chronic kidney disease, unspecified; I50.9 Heart failure, unspecified; Z87.01 Personal history of pneumonia (recurrent); Z88.8 Allergy status to other drugs, medicaments and biological substances; Z79.82 Long term (current) use of aspirin; Z79.899 Other long term (current) drug therapy; Z98.890 Other specified postprocedural states

== ENCOUNTER → 2019-05-29 | Outpatient (CLI) | payer OTHER ==
--- NOTE | 2019-05-30 23:02 | SLE ---
[facility] [place] [address] POLYSOMNOGRAPHY STUDY Name: AUDIE MENJIVAR Room #: REG [facility]#: [id number] Admission: 05/29/19 ������������������ Attend Phys: Devante Braxton MD Discharge: ������������������ Date of : 51 Report #: [id number] THIS REPORT FOR: //name// CC: Devante Meehan DATE OF SERVICE: 05/29/2019 ATTENDING PHYSICIAN: Dr. Nuno Meehan. The patient is 63 years old who weighs 191 pounds with a BMI of 37.3. 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 The patient was referred to [facility] for CPAP titration study. During the night study, the patient spent 426 minutes in bed and slept for only 114 minutes with a low sleep efficiency of 26.7%. Sleep latency was prolonged at 89 minutes with a REM latency of 293 minutes. Overall, sleep architecture showed increased stage 1 sleep, normal stage 2 sleep, reduced slow wave and normal REM sleep. EKG monitoring revealed an average heart rate of 75 beats per minute. No sustained arrhythmias observed. No PLMS observed. The patient was started on CPAP at a pressure of 5 cm of water and titrated up to 9 cm water. At the final pressure, the patient slept for 46 minutes. The patient had 19 minutes of lateral REM sleep. The patient's AHI was still 11.7 per hour and oxygen saturations remained above 88%. Optimum CPAP pressure was not achieved due to limited sleep time. I would recommend the patient should be placed on an auto CPAP. IMPRESSION: 1. Severe sleep apnea diagnosed by home sleep study. 2. Nocturnal hypoxia due to MARC, significantly improved with CPAP. 3. Poor sleep efficiency of 26%, resulting from sleep onset and sleep maintenance insomnia. 4. No clinically significant periodic limb movements. RECOMMENDATIONS: 1. Optimum CPAP pressure was not achieved on the night of the study due to limited sleep time.I would recommend that the patient should be placed on an auto CPAP at a minimum pressure of 11 cm of water and a maximum pressure of 17 [facility] [address] [place] [address] POLYSOMNOGRAPHY STUDY Name: AUDIE MENJIVAR Room #: REG [facility].#: [id number] Admission: 05/29/19 ������������������ Attend Phys: Devante Braxton MD Discharge: ������������������ Date of : 51 Report #: [id number] cm of water. 2. Once the patient is optimally treated, then follow up in 4-6 weeks to assess compliance and to document clinical improvement. 3. Weight loss is strongly advised. 4. Avoid CONSTRUCTION ADMINISTRATIVE ASSISTANT depressants. 5. Cautioned regarding driving until symptoms of sleep apnea resolve with the use of CPAP. 7. If the patient has chronic insomnia, then it should be further evaluated and treated according to the etiology. ��������������������������������������������� <ELECTRONICALLY SIGNED> ���������������������������������������� By: Devante Braxton MD ��������������������������������������������� 05/30/19 [id number] [id number] Devante Braxton MD /marcie
== END ==
LOC: SLEEPLAB 15:47
DX: G47.33 Obstructive sleep apnea (adult) (pediatric) (principal); R09.02 Hypoxemia; G47.00 Insomnia, unspecified

== ENCOUNTER → 2019-06-07 | Outpatient (CLI) | payer OTHER | LOC: RAD 13:05 | DX: J90 Pleural effusion, not elsewhere classified (principal); R06.00 Dyspnea, unspecified ==

== ENCOUNTER → 2020-06-03 | Outpatient (CLI) | payer OTHER, MEDICARE | LOC: RAD 15:11 | PROVIDERS: ATTEND Internal Medicine Pulmonary Disease | DX: J44.9 Chronic obstructive pulmonary disease, unspecified (principal) ==